=== PATIENT | male | born 1960 | race Native Hawaiian/Other Pacific Islander ===

== ENCOUNTER 2016-09-02 10:04 | Inpatient (IN) | payer OTHER | END 2016-10-03 08:00 | disposition still patient (30) | LOC: PAVC 10:04 | PROVIDERS: ADMIT Family Medicine | DX: Z51.89 Encounter for other specified aftercare (principal) ==

== ENCOUNTER 2016-10-03 09:00 | Inpatient (IN) | payer OTHER | END 2016-11-03 12:32 | disposition still patient (30) | LOC: PAVC 09:00 | PROVIDERS: ADMIT Family Medicine | DX: Z51.89 Encounter for other specified aftercare (principal) ==

== ENCOUNTER 2016-11-03 12:43 | Inpatient (IN) | payer OTHER | END 2016-12-01 13:18 | disposition still patient (30) | LOC: PAVC 12:43 | PROVIDERS: ADMIT Family Medicine | DX: Z51.89 Encounter for other specified aftercare (principal) ==

== ENCOUNTER 2016-11-16 18:33 | Outpatient (CLI) | payer OTHER ==
[2016-11-16 19:24] LABS: PLATELET COUNT 246 K/uL (142-355)
[2016-11-16 19:40] LABS: POTASSIUM 4.1 mmol/L (3.6-5.2); SODIUM 136 mmol/L (136-145)
== END 2016-11-16 20:33 | disposition home or self-care (01) ==
LOC: LAB 18:33
PROVIDERS: Family Medicine
DX: E66.01 Morbid (severe) obesity due to excess calories (principal); D64.9 Anemia, unspecified
CPT/HCPCS: 80053; 82728; 83036; 83540; 83550; 84439; 84443; 84479; 84550; 85027

== ENCOUNTER 2016-12-01 13:28 | Inpatient (IN) | payer OTHER | END 2017-01-01 08:12 | disposition still patient (30) | LOC: PAVC 13:28 | PROVIDERS: ADMIT Family Medicine | DX: Z51.89 Encounter for other specified aftercare (principal) ==

== ENCOUNTER 2017-01-01 08:29 | Inpatient (IN) | payer OTHER | END 2017-01-31 10:55 | disposition still patient (30) | LOC: PAVC 08:29 | PROVIDERS: ADMIT Family Medicine | DX: Z51.89 Encounter for other specified aftercare (principal) ==

== ENCOUNTER 2017-01-17 01:11 | Outpatient (CLI) | payer OTHER | END 2017-01-17 19:21 | disposition home or self-care (01) | LOC: LAB 01:11 | DX: E16.1 Other hypoglycemia (principal) | CPT/HCPCS: 81000 ==

== ENCOUNTER 2017-01-30 13:02 | Outpatient (CLI) | payer OTHER | END 2017-01-30 19:48 | disposition home or self-care (01) | LOC: LAB 13:02 | DX: Z16.24 Resistance to multiple antibiotics (principal) | CPT/HCPCS: 87081 ==

== ENCOUNTER 2017-01-31 11:13 | Inpatient (IN) | payer OTHER | END 2017-03-03 10:44 | disposition still patient (30) | LOC: PAVC 11:13 | PROVIDERS: ADMIT Family Medicine | DX: Z51.89 Encounter for other specified aftercare (principal) ==

== ENCOUNTER 2017-03-03 10:51 | Inpatient (IN) | payer OTHER | END 2017-04-02 16:07 | disposition still patient (30) | LOC: PAVC 10:51 | PROVIDERS: ADMIT Family Medicine | DX: Z51.89 Encounter for other specified aftercare (principal) ==

== ENCOUNTER 2017-03-08 07:03 | Outpatient (CLI) | payer OTHER ==
[2017-03-08 08:47] LABS: POTASSIUM 4.9 mmol/L (3.6-5.2); SODIUM 137 mmol/L (136-145)
[2017-03-08 14:33] LABS: PLATELET COUNT 234 K/uL (142-355)
== END 2017-03-08 19:08 | disposition home or self-care (01) ==
LOC: LAB 07:03
PROVIDERS: Family Medicine
DX: D64.89 Other specified anemias (principal); E78.4 Other hyperlipidemia; I10 Essential (primary) hypertension
CPT/HCPCS: 80053; 80061; 83735; 85027

== ENCOUNTER 2017-04-02 16:23 | Inpatient (IN) | payer OTHER | END 2017-05-03 12:56 | disposition still patient (30) | LOC: PAVC 16:23 | PROVIDERS: ADMIT Family Medicine | DX: Z51.89 Encounter for other specified aftercare (principal) ==

== ENCOUNTER 2017-05-03 13:55 | Inpatient (IN) | payer OTHER | END 2017-06-03 09:41 | disposition still patient (30) | LOC: PAVC 13:55 | PROVIDERS: ADMIT Family Medicine | DX: Z51.89 Encounter for other specified aftercare (principal) ==

== ENCOUNTER 2017-06-03 10:13 | Inpatient (IN) | payer OTHER | END 2017-07-03 09:35 | disposition still patient (30) | LOC: PAVC 10:13 | PROVIDERS: ADMIT Family Medicine | DX: Z51.89 Encounter for other specified aftercare (principal) ==

== ENCOUNTER 2017-07-03 09:49 | Inpatient (IN) | payer OTHER | END 2017-08-03 14:18 | disposition still patient (30) | LOC: PAVC 09:49 | PROVIDERS: ADMIT Family Medicine ==

== ENCOUNTER 2017-08-03 14:28 | Inpatient (IN) | payer OTHER | END 2017-09-02 10:28 | disposition still patient (30) | LOC: PAVC 14:28 | PROVIDERS: ADMIT Family Medicine ==

== ENCOUNTER 2017-09-02 10:37 | Inpatient (IN) | payer OTHER | END 2017-10-03 10:55 | disposition still patient (30) | LOC: PAVC 10:37 | PROVIDERS: ADMIT Family Medicine ==

== ENCOUNTER 2017-09-06 05:37 | Outpatient (CLI) | payer OTHER ==
[2017-09-06 06:47] LABS: PLATELET COUNT 172 K/uL (142-355)
[2017-09-06 07:11] LABS: POTASSIUM 4.7 mmol/L (3.6-5.2); SODIUM 136 mmol/L (136-145)
== END 2017-09-06 06:40 | disposition home or self-care (01) ==
LOC: LAB 05:37
PROVIDERS: Family Medicine
DX: R79.89 Other specified abnormal findings of blood chemistry (principal); E61.2 Magnesium deficiency; Z13.220 Encounter for screening for lipoid disorders
CPT/HCPCS: 80053; 80061; 83735; 85027

== ENCOUNTER 2017-09-07 12:34 | Outpatient (CLI) | payer OTHER | END 2017-09-07 21:17 | disposition home or self-care (01) | LOC: LAB 12:34 | DX: D64.89 Other specified anemias (principal); D50.8 Other iron deficiency anemias | CPT/HCPCS: 82728; 83540; 83550 ==

== ENCOUNTER 2017-10-03 11:35 | Inpatient (IN) | payer OTHER | END 2017-11-03 11:11 | disposition still patient (30) | LOC: PAVC 11:35 | PROVIDERS: ADMIT Family Medicine ==

== ENCOUNTER 2017-11-03 12:18 | Inpatient (IN) | payer OTHER | END 2017-12-01 10:36 | disposition still patient (30) | LOC: PAVC 12:18 | PROVIDERS: ADMIT Family Medicine ==

== ENCOUNTER 2017-12-01 10:45 | Inpatient (IN) | payer OTHER | END 2018-01-01 08:00 | disposition still patient (30) | LOC: PAVC 10:45 | PROVIDERS: ADMIT Family Medicine ==

== ENCOUNTER 2018-01-01 09:00 | Inpatient (IN) | payer OTHER | END 2018-01-31 10:26 | disposition still patient (30) | LOC: PAVC 09:00 | PROVIDERS: ADMIT Family Medicine ==

== ENCOUNTER 2018-01-27 16:38 | Outpatient (CLI) | payer OTHER ==
[2018-01-27 16:56] LABS: PLATELET COUNT 221 K/uL (142-355)
[2018-01-27 17:22] LABS: POTASSIUM 4.7 mmol/L (3.6-5.2)
== END 2018-01-27 19:19 | disposition home or self-care (01) ==
LOC: LAB 16:38
PROVIDERS: Family Medicine
DX: R04.0 Epistaxis (principal)
CPT/HCPCS: 36415; 80053; 81000; 82607; 82746; 85027

== ENCOUNTER 2018-01-31 10:40 | Inpatient (IN) | payer OTHER ==
[2018-03-03 04:10] LABS: PLATELET COUNT 226 K/uL (142-355)
[2018-03-03 04:27] LABS: POTASSIUM 4.7 mmol/L (3.6-5.2)
== END 2018-03-03 10:22 | disposition still patient (30) ==
LOC: PAVC 10:40
PROVIDERS: ADMIT Family Medicine
CPT/HCPCS: 80053; 80061; 83735; 84436; 84443; 85027

== ENCOUNTER 2018-03-03 03:40 | Outpatient (CLI) | payer OTHER | END 2018-03-03 19:18 | disposition home or self-care (01) | LOC: LAB 03:40 | DX: I10 Essential (primary) hypertension (principal); R53.83 Other fatigue; E66.01 Morbid (severe) obesity due to excess calories; E78.4 Other hyperlipidemia; I50.9 Heart failure, unspecified ==

== ENCOUNTER 2018-03-03 10:38 | Inpatient (IN) | payer OTHER | END 2018-04-02 15:04 | disposition still patient (30) | LOC: PAVC 10:38 | PROVIDERS: ADMIT Family Medicine ==

== ENCOUNTER 2018-04-02 15:22 | Inpatient (IN) | payer OTHER | END 2018-05-03 08:00 | disposition still patient (30) | LOC: PAVC 15:22 | PROVIDERS: ADMIT Family Medicine ==

== ENCOUNTER 2018-04-25 07:27 | Outpatient (CLI) | payer OTHER | END 2018-04-25 19:23 | disposition home or self-care (01) | LOC: RAD 07:27 | DX: M25.512 Pain in left shoulder (principal) ==

== ENCOUNTER 2018-05-03 09:00 | Inpatient (IN) | payer OTHER | END 2018-06-03 11:10 | disposition still patient (30) | LOC: PAVC 09:00 | PROVIDERS: ADMIT Family Medicine ==

== ENCOUNTER 2018-06-03 11:25 | Inpatient (IN) | payer OTHER | END 2018-07-03 14:31 | disposition still patient (30) | LOC: PAVC 11:25 | PROVIDERS: ADMIT Family Medicine ==

== ENCOUNTER 2018-07-03 15:11 | Inpatient (IN) | payer OTHER | END 2018-08-03 10:30 | disposition still patient (30) | LOC: PAVC 15:11 | PROVIDERS: ADMIT Family Medicine ==

== ENCOUNTER 2018-08-03 11:03 | Inpatient (IN) | payer OTHER | END 2018-09-02 07:19 | disposition still patient (30) | LOC: PAVC 11:03 | PROVIDERS: ADMIT Family Medicine ==

== ENCOUNTER 2018-08-10 06:34 | Outpatient (CLI) | payer OTHER | END 2018-08-10 20:08 | disposition home or self-care (01) | LOC: LAB 06:34 | DX: E55.9 Vitamin D deficiency, unspecified (principal) | CPT/HCPCS: 36415; 82306 ==

== ENCOUNTER 2018-08-23 10:45 | Outpatient (CLI) | payer OTHER | END 2018-08-23 19:36 | disposition home or self-care (01) | LOC: RAD 10:45 | DX: M25.562 Pain in left knee (principal) ==

== ENCOUNTER 2018-09-02 07:26 | Inpatient (IN) | payer OTHER | END 2018-10-03 09:34 | disposition still patient (30) | LOC: PAVC 07:26 | PROVIDERS: ADMIT Family Medicine ==

== ENCOUNTER 2018-09-06 05:36 | Outpatient (CLI) | payer OTHER ==
[2018-09-06 06:37] LABS: POTASSIUM 5.2 mmol/L (3.6-5.2)
[2018-09-06 06:38] LABS: PLATELET COUNT 226 K/uL (142-355)
== END 2018-09-06 21:11 | disposition home or self-care (01) ==
LOC: LAB 05:36
PROVIDERS: Family Medicine
DX: I50.9 Heart failure, unspecified (principal); E61.2 Magnesium deficiency; E78.5 Hyperlipidemia, unspecified
CPT/HCPCS: 80053; 80061; 83735; 85027

== ENCOUNTER 2018-10-03 09:44 | Inpatient (IN) | payer OTHER ==
[2018-11-02] MEDS ORDERED: CALCIUM CARBON600 M2 PO (03:11)
[2018-11-02] MEDS ORDERED: DOCU100C10 PO (03:12)
[2018-11-02] MEDS ORDERED: ELIQUIS5 MG PO (03:13)
[2018-11-02] MEDS ORDERED: IRON325 MG PO (03:14)
[2018-11-02] MEDS ORDERED: FURO40TA93 PO (03:14)
[2018-11-02] MEDS ORDERED: LIPITOR80 MG PO (03:15)
[2018-11-02] MEDS ORDERED: LYRICA75 MG PO (03:16)
[2018-11-02] MEDS ORDERED: METOPROLOL25 M1 PO (03:17)
[2018-11-02] MEDS ORDERED: MAG OXIDE400 MG PO (03:17)
[2018-11-02] MEDS ORDERED: ONDANSETRON4 M2 PO (03:18)
[2018-11-02] MEDS ORDERED: PEPCID20 MG PO (03:18)
[2018-11-02] MEDS ORDERED: OMEP20CA PO (03:20)
[2018-11-02] MEDS ORDERED: K-TAB20 MEQ PO (03:20)
[2018-11-02] MEDS ORDERED: ASCO500T18 PO (03:21)
[2018-11-02] MEDS ORDERED: DIAZ5TAB20 PO (03:21)
[2018-11-02] MEDS ORDERED: VITAMIN D35000 UNI6 PO (03:22)
[2018-11-02] MEDS ORDERED: CLARITIN10 M1 PO (03:23)
[2018-11-02] MEDS ORDERED: MELATONIN10 M2 PO (03:23)
[2018-11-02] MEDS ORDERED: TYLENOL325 M1 PO (03:24)
[2018-11-02] MEDS ORDERED: MOBIC7.5 M1 PO (03:24)
[2018-11-02] MEDS ORDERED: HYDR10TA47 PO (03:25)
== END 2018-11-03 09:35 | disposition still patient (30) ==
LOC: PAVC 09:44
PROVIDERS: ADMIT Family Medicine

== ENCOUNTER 2018-10-31 22:05 | Outpatient (CLI) | payer OTHER | END 2018-10-31 23:00 | LOC: LAB 22:05 | DX: J11.1 Influenza due to unidentified influenza virus with other respiratory manifestations (principal) ==

== ENCOUNTER 2018-11-01 15:52 | Outpatient (CLI) | payer OTHER ==
[2018-11-02] MEDS ORDERED: CALCIUM CARBON600 M2 PO (03:11)
[2018-11-02] MEDS ORDERED: DOCU100C10 PO (03:12)
[2018-11-02] MEDS ORDERED: ELIQUIS5 MG PO (03:13)
[2018-11-02] MEDS ORDERED: FURO40TA93 PO (03:14)
[2018-11-02] MEDS ORDERED: IRON325 MG PO (03:14)
[2018-11-02] MEDS ORDERED: LIPITOR80 MG PO (03:15)
[2018-11-02] MEDS ORDERED: LYRICA75 MG PO (03:16)
[2018-11-02] MEDS ORDERED: METOPROLOL25 M1 PO (03:17)
[2018-11-02] MEDS ORDERED: MAG OXIDE400 MG PO (03:17)
[2018-11-02] MEDS ORDERED: ONDANSETRON4 M2 PO (03:18)
[2018-11-02] MEDS ORDERED: PEPCID20 MG PO (03:18)
[2018-11-02] MEDS ORDERED: K-TAB20 MEQ PO (03:20)
[2018-11-02] MEDS ORDERED: OMEP20CA PO (03:20)
[2018-11-02] MEDS ORDERED: ASCO500T18 PO (03:21)
[2018-11-02] MEDS ORDERED: DIAZ5TAB20 PO (03:21)
[2018-11-02] MEDS ORDERED: VITAMIN D35000 UNI6 PO (03:22)
[2018-11-02] MEDS ORDERED: MELATONIN10 M2 PO (03:23)
[2018-11-02] MEDS ORDERED: CLARITIN10 M1 PO (03:23)
[2018-11-02] MEDS ORDERED: MOBIC7.5 M1 PO (03:24)
[2018-11-02] MEDS ORDERED: TYLENOL325 M1 PO (03:24)
[2018-11-02] MEDS ORDERED: HYDR10TA47 PO (03:25)
== END 2018-11-01 23:07 | disposition home or self-care (01) ==
LOC: RAD 15:52
DX: R05 Cough (principal)

== ENCOUNTER 2018-11-01 16:54 | Inpatient (IN) | payer OTHER ==
[~2018-11-01] VITALS: Ht 175.3 cm; Wt 198.2 kg
[2018-11-01 20:00] VITALS: BP 141/85; TEMP 101.7
[2018-11-01 21:17] VITALS: BP 141/85; TEMP 101.7; Ht 175.3 cm; Wt 198.2 kg
[2018-11-01 21:21] LABS: PLATELET COUNT 170 K/uL (142-355)
[2018-11-01 21:32] LABS: POTASSIUM 4.3 mmol/L (3.6-5.2)
[2018-11-02] VITALS: BP 126/73; TEMP 101.1
[2018-11-02] MEDS ORDERED: CALCIUM CARBON600 M2 PO (03:11)
[2018-11-02] MEDS ORDERED: DOCU100C10 PO (03:12)
[2018-11-02] MEDS ORDERED: ELIQUIS5 MG PO (03:13)
[2018-11-02] MEDS ORDERED: FURO40TA93 PO (03:14)
[2018-11-02] MEDS ORDERED: IRON325 MG PO (03:14)
[2018-11-02] MEDS ORDERED: LIPITOR80 MG PO (03:15)
[2018-11-02] MEDS ORDERED: LYRICA75 MG PO (03:16)
[2018-11-02] MEDS ORDERED: METOPROLOL25 M1 PO (03:17)
[2018-11-02] MEDS ORDERED: MAG OXIDE400 MG PO (03:17)
[2018-11-02] MEDS ORDERED: PEPCID20 MG PO (03:18)
[2018-11-02] MEDS ORDERED: ONDANSETRON4 M2 PO (03:18)
[2018-11-02] MEDS ORDERED: K-TAB20 MEQ PO (03:20)
[2018-11-02] MEDS ORDERED: OMEP20CA PO (03:20)
[2018-11-02] MEDS ORDERED: ASCO500T18 PO (03:21)
[2018-11-02] MEDS ORDERED: DIAZ5TAB20 PO (03:21)
[2018-11-02] MEDS ORDERED: VITAMIN D35000 UNI6 PO (03:22)
[2018-11-02] MEDS ORDERED: MELATONIN10 M2 PO (03:23)
[2018-11-02] MEDS ORDERED: CLARITIN10 M1 PO (03:23)
[2018-11-02] MEDS ORDERED: MOBIC7.5 M1 PO (03:24)
[2018-11-02] MEDS ORDERED: TYLENOL325 M1 PO (03:24)
[2018-11-02] MEDS ORDERED: HYDR10TA47 PO (03:25)
[2018-11-02 04:00] VITALS: BP 113/73; TEMP 98.9
[2018-11-02 08:04] VITALS: BP 133/79; TEMP 98.8
[2018-11-02 12:08] VITALS: BP 98/65; TEMP 98.6
[2018-11-02 16:19] VITALS: BP 105/70; TEMP 98.7
[2018-11-02 20:00] VITALS: BP 126/67; TEMP 98.8
[2018-11-03] VITALS: BP 104/70; TEMP 98.4
[2018-11-03 04:00] VITALS: BP 101/58; TEMP 98.3
[2018-11-03 08:18] VITALS: BP 124/75; TEMP 98.4
[2018-11-03 12:10] VITALS: BP 96/53; TEMP 98.4
[2018-11-03 16:00] VITALS: BP 116/82; TEMP 98.5
[2018-11-03 20:26] VITALS: BP 125/64; TEMP 98.8
[2018-11-04] VITALS: BP 133/65; TEMP 98.7
[2018-11-04 04:00] VITALS: BP 109/76; TEMP 98.2
[2018-11-04 08:00] VITALS: BP 97/76; TEMP 97.1
[2018-11-04 12:00] VITALS: BP 129/75; TEMP 97.6
[2018-11-04 13:50] LABS: PLATELET COUNT 162 K/uL (142-355)
[2018-11-04 14:04] LABS: POTASSIUM 4.4 mmol/L (3.6-5.2)
[2018-11-04 16:00] VITALS: BP 114/70; TEMP 98.3
[2018-11-04 20:00] VITALS: BP 140/88; TEMP 98.6
[2018-11-05] VITALS: BP 101/69; TEMP 98.8
[2018-11-05 04:27] VITALS: BP 140/76; TEMP 98.7
[2018-11-05 08:00] VITALS: BP 131/78; TEMP 98.1
[2018-11-05 12:00] VITALS: BP 136/77; TEMP 97.9
[2018-11-05 16:09] VITALS: BP 116/83; TEMP 98.1
[2018-11-05 20:00] VITALS: BP 108/78; TEMP 97.6
[2018-11-06] VITALS: BP 128/77; TEMP 97.4
[2018-11-06 04:00] VITALS: BP 96/42; TEMP 98
[2018-11-06 06:29] LABS: POTASSIUM 4.7 mmol/L (3.6-5.2)
[2018-11-06 07:55] LABS: PLATELET COUNT 172 K/uL (142-355)
[2018-11-06 08:00] VITALS: BP 126/77; TEMP 98.1
[2018-11-06 12:00] VITALS: BP 112/77; TEMP 98.1
== END 2018-11-06 12:17 | DRG 202 ==
LOC: MED/SURG 16:54
PROVIDERS: Family Medicine; ADMIT Family Medicine
DX: J45.901 Unspecified asthma with (acute) exacerbation (principal); L03.314 Cellulitis of groin; N39.0 Urinary tract infection, site not specified; Z68.44 Body mass index [BMI] 60.0-69.9, adult; I48.91 Unspecified atrial fibrillation; I25.10 Atherosclerotic heart disease of native coronary artery without angina pectoris; E78.49 Other hyperlipidemia; I25.2 Old myocardial infarction; E86.0 Dehydration; Z79.01 Long term (current) use of anticoagulants; E66.01 Morbid (severe) obesity due to excess calories; G47.09 Other insomnia; I50.9 Heart failure, unspecified
CPT/HCPCS: 36415; 80048; 80053; 81000; 85027; 87088; 93005; 94640; 94664; 94760; 96365; 96366; 96367; J0696; J1956; J3490

== ENCOUNTER 2018-11-03 09:45 | Inpatient (IN) | payer OTHER ==
[~2018-11-03 09:45] MED LIST: ASCO500T18 PO; CALCIUM CARBON600 M2 PO; CLARITIN10 M1 PO; DIAZ5TAB20 PO; DOCU100C10 PO; ELIQUIS5 MG PO; FURO40TA93 PO; HYDR10TA47 PO; IRON325 MG PO; K-TAB20 MEQ PO; LIPITOR80 MG PO; LYRICA75 MG PO; MAG OXIDE400 MG PO; MELATONIN10 M2 PO; METOPROLOL25 M1 PO; MOBIC7.5 M1 PO; OMEP20CA PO; ONDANSETRON4 M2 PO; PEPCID20 MG PO; TYLENOL325 M1 PO; VITAMIN D35000 UNI6 PO
== END 2018-12-01 12:10 | disposition still patient (30) ==
LOC: PAVC 09:45
PROVIDERS: ADMIT Family Medicine

== ENCOUNTER 2018-12-01 12:16 | Inpatient (IN) | payer OTHER | END 2019-01-01 12:28 | disposition still patient (30) | LOC: PAVC 12:16 | PROVIDERS: ADMIT Family Medicine ==

== ENCOUNTER 2018-12-26 12:58 | Outpatient (CLI) | payer OTHER | END 2018-12-26 21:10 | disposition home or self-care (01) | LOC: RESP 12:58 | DX: R00.0 Tachycardia, unspecified (principal); R06.02 Shortness of breath | CPT/HCPCS: 93306 ==

== ENCOUNTER 2019-01-01 12:36 | Inpatient (IN) | payer OTHER | END 2019-01-31 13:41 | disposition still patient (30) | LOC: PAVC 12:36 | PROVIDERS: ADMIT Family Medicine ==

== ENCOUNTER 2019-01-10 18:44 | Emergency (ER) | payer OTHER | END 2019-01-10 19:10 | disposition home or self-care (01) | LOC: ED 18:44 | DX: R00.2 Palpitations (principal); R53.1 Weakness | CPT/HCPCS: 99281 ==

== ENCOUNTER 2019-01-31 13:52 | Inpatient (IN) | payer OTHER | END 2019-03-03 09:38 | disposition still patient (30) | LOC: PAVC 13:52 | PROVIDERS: ADMIT Family Medicine | DX: Z51.89 Encounter for other specified aftercare (principal) ==

== ENCOUNTER 2019-02-05 02:30 | Outpatient (CLI) | payer OTHER | END 2019-02-05 20:13 | disposition home or self-care (01) | LOC: LAB 02:30 | DX: D51.8 Other vitamin B12 deficiency anemias (principal) | CPT/HCPCS: 36415; 82306 ==

== ENCOUNTER 2019-02-13 17:43 | Outpatient (CLI) | payer OTHER ==
[2019-02-13 21:57] LABS: PLATELET COUNT 247 K/uL (142-355)
[2019-02-13 22:13] LABS: POTASSIUM 4.7 mmol/L (3.6-5.2)
== END 2019-02-13 22:35 | disposition home or self-care (01) ==
LOC: LAB 17:43 → RAD 17:43
PROVIDERS: Family Medicine
DX: R05 Cough (principal); R06.2 Wheezing; J81.1 Chronic pulmonary edema
CPT/HCPCS: 36415; 80053; 83880; 85027

== ENCOUNTER 2019-02-14 15:07 | Outpatient (CLI) | payer OTHER | END 2019-02-14 19:16 | disposition home or self-care (01) | LOC: RESP 15:07 | DX: I48.0 Paroxysmal atrial fibrillation (principal); R00.2 Palpitations | CPT/HCPCS: 93225 ==

== ENCOUNTER 2019-03-03 09:55 | Inpatient (IN) | payer OTHER | END 2019-04-02 11:34 | disposition still patient (30) | LOC: PAVC 09:55 | PROVIDERS: ADMIT Internal Medicine ==

== ENCOUNTER 2019-03-07 03:50 | Outpatient (CLI) | payer OTHER ==
[2019-03-07 04:50] LABS: PLATELET COUNT 191 K/uL (142-355)
[2019-03-07 05:12] LABS: POTASSIUM 4.5 mmol/L (3.6-5.2)
== END 2019-03-07 23:21 | disposition home or self-care (01) ==
LOC: LAB 03:50
PROVIDERS: Family Medicine
DX: R79.89 Other specified abnormal findings of blood chemistry (principal); E61.2 Magnesium deficiency; E78.49 Other hyperlipidemia
CPT/HCPCS: 36415; 80053; 80061; 83735; 85027

== ENCOUNTER 2019-03-07 18:56 | Outpatient (CLI) | payer OTHER | END 2019-03-07 23:29 | disposition home or self-care (01) | LOC: LAB 18:56 | DX: D64.89 Other specified anemias (principal); E78.49 Other hyperlipidemia; D64.9 Anemia, unspecified | CPT/HCPCS: 82728; 83540; 83550 ==

== ENCOUNTER 2019-04-02 11:58 | Inpatient (IN) | payer OTHER | END 2019-05-03 11:52 | disposition still patient (30) | LOC: PAVC 11:58 | PROVIDERS: ADMIT Family Medicine ==

== ENCOUNTER 2019-05-03 12:57 | Inpatient (IN) | payer OTHER | END 2019-06-03 17:15 | disposition still patient (30) | LOC: PAVC 12:57 | PROVIDERS: ADMIT Family Medicine ==

== ENCOUNTER 2019-05-11 07:48 | Outpatient (CLI) | payer OTHER | END 2019-05-11 23:40 | disposition home or self-care (01) | LOC: LAB 07:48 | DX: Z12.5 Encounter for screening for malignant neoplasm of prostate (principal) | CPT/HCPCS: 84153 ==

== ENCOUNTER 2019-06-03 17:31 | Inpatient (IN) | payer OTHER | END 2019-07-03 12:55 | disposition still patient (30) | LOC: PAVC 17:31 | PROVIDERS: ADMIT Internal Medicine ==

== ENCOUNTER 2019-07-03 13:20 | Inpatient (IN) | payer OTHER | END 2019-08-03 14:04 | disposition still patient (30) | LOC: PAVC 13:20 | PROVIDERS: ADMIT Internal Medicine ==

== ENCOUNTER 2019-08-03 14:20 | Inpatient (IN) | payer OTHER | END 2019-09-02 08:00 | disposition still patient (30) | LOC: PAVC 14:20 | PROVIDERS: ADMIT Internal Medicine ==

== ENCOUNTER 2019-09-02 11:00 | Inpatient (IN) | payer OTHER | END 2019-10-03 09:27 | disposition still patient (30) | LOC: PAVC 11:00 | PROVIDERS: ADMIT Internal Medicine ==

== ENCOUNTER 2019-09-03 05:24 | Outpatient (CLI) | payer OTHER ==
[2019-09-03 06:41] LABS: PLATELET COUNT 201 K/uL (142-355)
[2019-09-03 07:18] LABS: POTASSIUM 4.3 mmol/L (3.6-5.2)
== END 2019-09-03 20:53 | disposition home or self-care (01) ==
LOC: LAB 05:24
PROVIDERS: Internal Medicine
DX: I10 Essential (primary) hypertension (principal); E87.8 Other disorders of electrolyte and fluid balance, not elsewhere classified
CPT/HCPCS: 80053; 80061; 83735; 85027

== ENCOUNTER 2019-10-03 09:45 | Inpatient (IN) | payer OTHER | END 2019-11-03 10:43 | disposition still patient (30) | LOC: PAVC 09:45 | PROVIDERS: ADMIT Internal Medicine ==

== ENCOUNTER 2019-11-03 11:03 | Inpatient (IN) | payer OTHER | END 2019-12-02 14:09 | disposition still patient (30) | LOC: PAVC 11:03 | PROVIDERS: ADMIT Internal Medicine ==

== ENCOUNTER 2019-12-02 14:26 | Inpatient (IN) | payer OTHER | END 2020-01-02 11:34 | disposition still patient (30) | LOC: PAVC 14:26 | PROVIDERS: ADMIT Internal Medicine ==

== ENCOUNTER 2020-01-02 11:59 | Inpatient (IN) | payer OTHER | END 2020-02-01 11:20 | disposition still patient (30) | LOC: PAVC 11:59 | PROVIDERS: ADMIT Internal Medicine ==

== ENCOUNTER 2020-02-01 11:42 | Inpatient (IN) | payer OTHER | END 2020-03-03 11:19 | disposition still patient (30) | LOC: PAVC 11:42 | PROVIDERS: ADMIT Internal Medicine | CPT/HCPCS: 87635; U0002 ==

== ENCOUNTER 2020-02-13 14:25 | Outpatient (CLI) | payer OTHER ==
[2020-02-13 14:32] LABS: PLATELET COUNT 267 K/uL (142-355)
[2020-02-13 14:43] LABS: POTASSIUM 4.9 mmol/L (3.6-5.2)
== END 2020-02-13 22:24 | disposition home or self-care (01) ==
LOC: LAB 14:25
PROVIDERS: Nurse Practitioner
DX: U07.1 COVID-19 (principal); I48.91 Unspecified atrial fibrillation
CPT/HCPCS: 80053; 85027; 85610

== ENCOUNTER 2020-02-21 06:43 | Outpatient (CLI) | payer OTHER ==
[2020-02-21 08:03] LABS: PLATELET COUNT 221 K/uL (142-355)
== END 2020-02-21 22:52 | disposition home or self-care (01) ==
LOC: LAB 06:43
PROVIDERS: Internal Medicine
DX: U07.1 COVID-19 (principal); Z79.899 Other long term (current) drug therapy
CPT/HCPCS: 85027

== ENCOUNTER 2020-03-03 11:29 | Inpatient (IN) | payer OTHER | END 2020-04-02 11:54 | disposition still patient (30) | LOC: PAVC 11:29 | PROVIDERS: ADMIT Internal Medicine ==

== ENCOUNTER 2020-03-04 01:56 | Outpatient (CLI) | payer OTHER ==
[2020-03-04 06:04] LABS: PLATELET COUNT 286 K/uL (142-355)
[2020-03-04 06:10] LABS: POTASSIUM 4.2 mmol/L (3.6-5.2)
== END 2020-03-04 19:02 | disposition home or self-care (01) ==
LOC: LAB 01:56
PROVIDERS: Internal Medicine
DX: I25.89 Other forms of chronic ischemic heart disease (principal); E78.49 Other hyperlipidemia; I10 Essential (primary) hypertension; I48.91 Unspecified atrial fibrillation
CPT/HCPCS: 80053; 80061; 82306; 83735; 85027

== ENCOUNTER 2020-04-02 11:59 | Inpatient (IN) | payer OTHER | END 2020-05-03 10:11 | disposition still patient (30) | LOC: PAVC 11:59 | PROVIDERS: ADMIT Internal Medicine ==

== ENCOUNTER 2020-05-03 10:18 | Inpatient (IN) | payer OTHER | END 2020-06-03 13:59 | disposition still patient (30) | LOC: PAVC 10:18 | PROVIDERS: ADMIT Internal Medicine ==

== ENCOUNTER 2020-06-03 14:10 | Inpatient (IN) | payer OTHER | END 2020-07-03 14:07 | disposition still patient (30) | LOC: PAVC 14:10 | PROVIDERS: ADMIT Internal Medicine ==

== ENCOUNTER 2020-07-03 14:17 | Inpatient (IN) | payer OTHER | END 2020-08-03 08:00 | disposition still patient (30) | LOC: PAVC 14:17 | PROVIDERS: ADMIT Internal Medicine ==

== ENCOUNTER 2020-07-09 12:19 | Outpatient (CLI) | payer OTHER ==
[2020-07-09 12:58] LABS: PLATELET COUNT 199 K/uL (142-355)
[2020-07-09 13:03] LABS: POTASSIUM 4.6 mmol/L (3.6-5.2)
== END 2020-07-09 23:00 | disposition home or self-care (01) ==
LOC: LAB 12:19
PROVIDERS: Nurse Practitioner
DX: I82.409 Acute embolism and thrombosis of unspecified deep veins of unspecified lower extremity (principal); M79.662 Pain in left lower leg; M62.81 Muscle weakness (generalized)
CPT/HCPCS: 80053; 85027

== ENCOUNTER 2020-07-21 17:06 | Outpatient (CLI) | payer OTHER | END 2020-07-21 22:37 | disposition home or self-care (01) | LOC: RAD 17:06 | DX: L53.8 Other specified erythematous conditions (principal); M89.8X8 Other specified disorders of bone, other site; M25.532 Pain in left wrist ==

== ENCOUNTER 2020-08-03 09:00 | Inpatient (IN) | payer OTHER | END 2020-09-02 12:23 | disposition still patient (30) | LOC: PAVC 09:00 | PROVIDERS: ADMIT Internal Medicine; ATTEND Internal Medicine ==

== ENCOUNTER 2020-09-02 08:10 | Outpatient (CLI) | payer OTHER ==
[2020-09-02 08:25] LABS: PLATELET COUNT 205 K/uL (142-355)
[2020-09-02 08:46] LABS: POTASSIUM 4.5 mmol/L (3.6-5.2)
== END 2020-09-02 22:22 | disposition home or self-care (01) ==
LOC: LAB 08:10
PROVIDERS: ATTEND Internal Medicine
DX: E66.01 Morbid (severe) obesity due to excess calories (principal); I50.9 Heart failure, unspecified; E55.9 Vitamin D deficiency, unspecified; I25.89 Other forms of chronic ischemic heart disease; E78.49 Other hyperlipidemia; I48.91 Unspecified atrial fibrillation; I11.0 Hypertensive heart disease with heart failure
CPT/HCPCS: 80053; 80061; 82306; 83735; 85027

== ENCOUNTER 2020-09-02 12:31 | Inpatient (IN) | payer OTHER | END 2020-10-03 09:46 | disposition still patient (30) | LOC: PAVC 12:31 | PROVIDERS: ADMIT Internal Medicine; ATTEND Internal Medicine ==

== ENCOUNTER 2020-10-03 09:53 | Inpatient (IN) | payer OTHER | END 2020-11-03 15:29 | disposition still patient (30) | LOC: PAVC 09:53 | PROVIDERS: ADMIT Internal Medicine; ATTEND Internal Medicine ==

== ENCOUNTER 2020-11-03 15:55 | Inpatient (IN) | payer OTHER | END 2020-12-01 10:57 | disposition still patient (30) | LOC: PAVC 15:55 | PROVIDERS: ADMIT Internal Medicine; ATTEND Internal Medicine ==

== ENCOUNTER 2020-12-01 11:24 | Inpatient (IN) | payer OTHER | END 2021-01-01 11:41 | disposition still patient (30) | LOC: PAVC 11:24 | PROVIDERS: ADMIT Internal Medicine; ATTEND Internal Medicine ==

== ENCOUNTER 2020-12-14 09:38 | Outpatient (CLI) | payer OTHER | END 2020-12-14 18:17 | disposition home or self-care (01) | LOC: RAD 09:38 | PROVIDERS: ATTEND Internal Medicine | DX: M25.512 Pain in left shoulder (principal) ==

== ENCOUNTER 2020-12-17 11:14 | Outpatient (CLI) | payer OTHER | END 2020-12-17 22:13 | disposition home or self-care (01) | LOC: INF 11:14 | PROVIDERS: ATTEND Internal Medicine | DX: Z23 Encounter for immunization (principal) | CPT/HCPCS: 96372 ==

== ENCOUNTER 2021-01-01 11:48 | Inpatient (IN) | payer OTHER | END 2021-01-31 11:24 | disposition still patient (30) | LOC: PAVC 11:48 | PROVIDERS: ADMIT Internal Medicine; ATTEND Internal Medicine ==

== ENCOUNTER 2021-01-15 14:45 | Outpatient (CLI) | payer OTHER | END 2021-01-15 22:02 | disposition home or self-care (01) | LOC: INF 14:45 | PROVIDERS: ATTEND Internal Medicine | DX: Z23 Encounter for immunization (principal) | CPT/HCPCS: 96372 ==

== ENCOUNTER 2021-01-31 11:29 | Inpatient (IN) | payer OTHER | END 2021-03-03 15:43 | disposition still patient (30) | LOC: PAVC 11:29 | PROVIDERS: ADMIT Internal Medicine; ATTEND Internal Medicine ==

== ENCOUNTER 2021-03-03 08:26 | Outpatient (CLI) | payer OTHER ==
[2021-03-03 09:45] LABS: PLATELET COUNT 227 K/uL (142-355)
[2021-03-03 10:10] LABS: POTASSIUM 4.4 mmol/L (3.6-5.2)
== END 2021-03-03 22:06 | disposition home or self-care (01) ==
LOC: LAB 08:26
PROVIDERS: ATTEND Internal Medicine
DX: I25.9 Chronic ischemic heart disease, unspecified (principal); E78.49 Other hyperlipidemia; I10 Essential (primary) hypertension; I48.91 Unspecified atrial fibrillation
CPT/HCPCS: 80053; 80061; 82306; 83735; 85027

== ENCOUNTER 2021-03-03 16:57 | Inpatient (IN) | payer OTHER | END 2021-04-02 08:00 | disposition still patient (30) | LOC: PAVC 16:57 | PROVIDERS: ADMIT Internal Medicine; ATTEND Internal Medicine ==

== ENCOUNTER 2021-04-02 09:00 | Inpatient (IN) | payer OTHER | END 2021-05-03 08:00 | disposition still patient (30) | LOC: PAVC 09:00 | PROVIDERS: ADMIT Internal Medicine; ATTEND Internal Medicine ==

== ENCOUNTER 2021-05-01 14:51 | Outpatient (CLI) | payer OTHER | END 2021-05-01 22:39 | disposition home or self-care (01) | LOC: RESP 14:51 | PROVIDERS: ATTEND Internal Medicine | DX: I25.89 Other forms of chronic ischemic heart disease (principal); I48.91 Unspecified atrial fibrillation; I50.9 Heart failure, unspecified | CPT/HCPCS: 93005 ==

== ENCOUNTER 2021-05-01 15:13 | Emergency (ER) | payer OTHER ==
[~2021-05-01] VITALS: Ht 175.3 cm; Wt 198.2 kg
[2021-05-01 15:19] VITALS: TEMP 96.4
[2021-05-01 16:46] LABS: PLATELET COUNT 325 K/uL (142-355)
[2021-05-01 16:58] LABS: POTASSIUM 4.3 mmol/L (3.6-5.2); SODIUM 134 mmol/L (136-145)
[2021-05-01 18:30] VITALS: BP 104/68
== END 2021-05-01 18:30 ==
LOC: ED 15:13
PROVIDERS: Family Medicine
DX: I48.20 Chronic atrial fibrillation, unspecified (principal); F41.0 Panic disorder [episodic paroxysmal anxiety]; Z20.822 Contact with and (suspected) exposure to COVID-19
CPT/HCPCS: 80053; 82550; 84484; 85027; 87635; 93005; 99283; U0003

== ENCOUNTER 2021-05-03 09:00 | Inpatient (IN) | payer OTHER | END 2021-06-03 13:48 | disposition still patient (30) | LOC: PAVC 09:00 | PROVIDERS: ADMIT Internal Medicine; ATTEND Internal Medicine ==

== ENCOUNTER 2021-05-04 09:04 | Outpatient (CLI) | payer OTHER | END 2021-05-04 22:37 | disposition home or self-care (01) | LOC: LAB 09:04 | PROVIDERS: ATTEND Internal Medicine | DX: I25.89 Other forms of chronic ischemic heart disease (principal); R48.8 Other symbolic dysfunctions; Z79.899 Other long term (current) drug therapy | CPT/HCPCS: 84153; 84439; 84443; 84479 ==

== ENCOUNTER 2021-05-11 15:36 | Outpatient (CLI) | payer OTHER | END 2021-05-11 21:47 | disposition home or self-care (01) | LOC: RAD 15:36 | PROVIDERS: ATTEND Internal Medicine | DX: R91.8 Other nonspecific abnormal finding of lung field (principal) ==

== ENCOUNTER 2021-05-25 00:32 | Outpatient (CLI) | payer OTHER | END 2021-05-25 21:41 | disposition home or self-care (01) | LOC: LAB 00:32 | PROVIDERS: ATTEND Internal Medicine | DX: I25.9 Chronic ischemic heart disease, unspecified (principal); I50.89 Other heart failure | CPT/HCPCS: 80162 ==

== ENCOUNTER 2021-06-03 13:54 | Inpatient (IN) | payer OTHER | END 2021-07-03 09:37 | disposition still patient (30) | LOC: PAVC 13:54 | PROVIDERS: ADMIT Internal Medicine; ATTEND Internal Medicine ==

== ENCOUNTER 2021-09-02 08:04 | Outpatient (CLI) | payer OTHER ==
[2021-09-02 08:48] LABS: PLATELET COUNT 232 K/uL (142-355)
[2021-09-02 08:57] LABS: POTASSIUM 4.3 mmol/L (3.6-5.2)
== END 2021-09-02 20:11 | disposition home or self-care (01) ==
LOC: LAB 08:04
PROVIDERS: ATTEND Internal Medicine
DX: I25.89 Other forms of chronic ischemic heart disease (principal); E78.49 Other hyperlipidemia; I10 Essential (primary) hypertension; I48.91 Unspecified atrial fibrillation
CPT/HCPCS: 80053; 80061; 82306; 83735; 85027

== ENCOUNTER 2021-09-02 11:26 | Inpatient (IN) | payer OTHER | END 2021-10-03 09:07 | disposition still patient (30) | LOC: PAVC 11:26 | PROVIDERS: ADMIT Internal Medicine; ATTEND Internal Medicine ==

== ENCOUNTER 2021-10-03 09:16 | Inpatient (IN) | payer OTHER | END 2021-11-03 08:54 | disposition still patient (30) | LOC: PAVC 09:16 | PROVIDERS: ADMIT Internal Medicine; ATTEND Internal Medicine ==

== ENCOUNTER 2021-11-03 11:21 | Inpatient (IN) | payer OTHER | END 2021-12-01 09:06 | disposition still patient (30) | LOC: PAVC 11:21 | PROVIDERS: ADMIT Internal Medicine; ATTEND Internal Medicine ==

== ENCOUNTER 2021-11-22 07:46 | Outpatient (CLI) | payer OTHER | END 2021-11-22 19:20 | disposition home or self-care (01) | LOC: LAB 07:46 | PROVIDERS: ATTEND Internal Medicine | DX: I25.89 Other forms of chronic ischemic heart disease (principal); I10 Essential (primary) hypertension; Z79.899 Other long term (current) drug therapy | CPT/HCPCS: 80162 ==

== ENCOUNTER 2021-12-01 13:29 | Inpatient (IN) | payer OTHER | END 2022-01-01 14:09 | disposition still patient (30) | LOC: PAVC 13:29 | PROVIDERS: ADMIT Internal Medicine; ATTEND Internal Medicine ==

== ENCOUNTER 2022-01-01 14:45 | Inpatient (IN) | payer OTHER | END 2022-01-31 10:32 | disposition still patient (30) | LOC: PAVC 14:45 | PROVIDERS: ADMIT Internal Medicine; ATTEND Internal Medicine ==

== ENCOUNTER 2022-01-28 07:46 | Outpatient (CLI) | payer OTHER ==
[~2022-01-28] VITALS: Ht 172.7 cm; Wt 172.8 kg
== END 2022-01-28 21:55 | disposition home or self-care (01) ==
LOC: NM 07:46
PROVIDERS: ATTEND Internal Medicine
DX: I48.91 Unspecified atrial fibrillation (principal)
CPT/HCPCS: A9500; J2785

== ENCOUNTER 2022-01-31 01:48 | Inpatient (IN) | payer OTHER | END 2022-03-03 09:55 | disposition still patient (30) | LOC: PAVC 01:48 | PROVIDERS: ADMIT Internal Medicine; ATTEND Internal Medicine ==

== ENCOUNTER 2022-03-03 08:31 | Outpatient (CLI) | payer OTHER ==
[2022-03-03 08:50] LABS: PLATELET COUNT 278 K/uL (142-355)
[2022-03-03 08:58] LABS: POTASSIUM 4.8 mmol/L (3.6-5.2)
== END 2022-03-03 19:08 | disposition home or self-care (01) ==
LOC: LAB 08:31
PROVIDERS: ATTEND Internal Medicine
DX: I25.89 Other forms of chronic ischemic heart disease (principal); I10 Essential (primary) hypertension; I48.91 Unspecified atrial fibrillation
CPT/HCPCS: 80053; 80061; 82306; 83735; 85027

== ENCOUNTER 2022-03-03 15:15 | Inpatient (IN) | payer OTHER | END 2022-04-02 09:13 | disposition still patient (30) | LOC: PAVC 15:15 | PROVIDERS: ADMIT Internal Medicine; ATTEND Internal Medicine ==

== ENCOUNTER 2022-04-02 12:33 | Inpatient (IN) | payer OTHER | END 2022-05-03 09:07 | disposition still patient (30) | LOC: PAVC 12:33 | PROVIDERS: ADMIT Internal Medicine; ATTEND Internal Medicine ==

== ENCOUNTER 2022-05-03 09:39 | Inpatient (IN) | payer OTHER | END 2022-06-03 09:10 | disposition still patient (30) | LOC: PAVC 09:39 | PROVIDERS: ADMIT Internal Medicine; ATTEND Internal Medicine ==

== ENCOUNTER 2022-05-24 07:23 | Outpatient (CLI) | payer OTHER | END 2022-05-24 18:47 | disposition home or self-care (01) | LOC: LAB 07:23 | PROVIDERS: ATTEND Internal Medicine Endocrinology, Diabetes & Metabolism | DX: I25.9 Chronic ischemic heart disease, unspecified (principal); I48.91 Unspecified atrial fibrillation; I50.9 Heart failure, unspecified | CPT/HCPCS: 80162 ==

== ENCOUNTER 2022-06-03 14:15 | Inpatient (IN) | payer OTHER | END 2022-07-03 10:34 | disposition still patient (30) | LOC: PAVC 14:15 | PROVIDERS: ADMIT Internal Medicine Endocrinology, Diabetes & Metabolism; ATTEND Internal Medicine Endocrinology, Diabetes & Metabolism ==

== ENCOUNTER 2022-07-03 13:42 | Inpatient (IN) | payer OTHER | END 2022-08-03 12:10 | disposition still patient (30) | LOC: PAVC 13:42 | PROVIDERS: ADMIT Internal Medicine Endocrinology, Diabetes & Metabolism; ATTEND Internal Medicine Endocrinology, Diabetes & Metabolism ==

== ENCOUNTER 2022-08-03 12:24 | Inpatient (IN) | payer OTHER | END 2022-09-02 15:15 | disposition still patient (30) | LOC: PAVC 12:24 | PROVIDERS: ADMIT Internal Medicine Endocrinology, Diabetes & Metabolism; ATTEND Internal Medicine Endocrinology, Diabetes & Metabolism ==

== ENCOUNTER 2022-09-02 07:39 | Outpatient (CLI) | payer OTHER ==
[2022-09-02 08:16] LABS: PLATELET COUNT 230 K/uL (142-355)
[2022-09-02 08:19] LABS: POTASSIUM 4.5 mmol/L (3.6-5.2)
== END 2022-09-02 18:58 | disposition home or self-care (01) ==
LOC: LAB 07:39
PROVIDERS: ATTEND Internal Medicine Endocrinology, Diabetes & Metabolism
DX: I25.9 Chronic ischemic heart disease, unspecified (principal); N18.9 Chronic kidney disease, unspecified; E78.49 Other hyperlipidemia; I48.91 Unspecified atrial fibrillation; I12.9 Hypertensive chronic kidney disease with stage 1 through stage 4 chronic kidney disease, or unspecified chronic kidney disease
CPT/HCPCS: 80053; 80061; 82306; 83735; 85027

== ENCOUNTER 2022-09-02 15:38 | Inpatient (IN) | payer OTHER | END 2022-10-03 10:44 | disposition still patient (30) | LOC: PAVC 15:38 | PROVIDERS: ADMIT Internal Medicine Endocrinology, Diabetes & Metabolism; ATTEND Internal Medicine Endocrinology, Diabetes & Metabolism ==

== ENCOUNTER 2022-10-03 13:48 | Inpatient (IN) | payer OTHER | END 2022-11-03 09:24 | disposition still patient (30) | LOC: PAVC 13:48 | PROVIDERS: ADMIT Internal Medicine Endocrinology, Diabetes & Metabolism; ATTEND Internal Medicine Endocrinology, Diabetes & Metabolism ==

== ENCOUNTER 2022-11-03 10:57 | Outpatient (CLI) | payer OTHER | END 2022-11-03 19:09 | disposition home or self-care (01) | LOC: LAB 10:57 | PROVIDERS: ATTEND Family Medicine | DX: I48.91 Unspecified atrial fibrillation (principal); I50.9 Heart failure, unspecified | CPT/HCPCS: 80162 ==

== ENCOUNTER 2022-11-03 11:57 | Inpatient (IN) | payer OTHER | END 2022-12-01 15:09 | disposition still patient (30) | LOC: PAVC 11:57 | PROVIDERS: ADMIT Family Medicine; ATTEND Family Medicine ==

== ENCOUNTER 2022-12-01 15:41 | Inpatient (IN) | payer OTHER | END 2023-01-01 12:49 | disposition still patient (30) | LOC: PAVC 15:41 | PROVIDERS: ADMIT Family Medicine; ATTEND Family Medicine ==

== ENCOUNTER 2023-01-01 12:59 | Inpatient (IN) | payer OTHER | END 2023-01-31 16:40 | disposition still patient (30) | LOC: PAVC 12:59 | PROVIDERS: ADMIT Family Medicine; ATTEND Family Medicine ==

== ENCOUNTER 2023-01-31 17:08 | Inpatient (IN) | payer OTHER | END 2023-03-03 11:56 | disposition still patient (30) | LOC: PAVC 17:08 | PROVIDERS: ADMIT Family Medicine; ATTEND Family Medicine ==

== ENCOUNTER 2023-03-03 12:03 | Inpatient (IN) | payer OTHER | END 2023-04-02 17:40 | disposition still patient (30) | LOC: PAVC 12:03 | PROVIDERS: ADMIT Family Medicine; ATTEND Family Medicine ==

== ENCOUNTER 2023-03-07 07:39 | Emergency (ER) | payer OTHER ==
[~2023-03-07] VITALS: Ht 172.7 cm; Wt 158.8 kg
[2023-03-07 08:20] LABS: PLATELET COUNT 361 K/uL (142-355)
[2023-03-07 08:22] LABS: POTASSIUM 4.4 mmol/L (3.6-5.2)
[2023-03-07 13:15] VITALS: BP 110/74; TEMP 97.5
== END 2023-03-07 13:15 | disposition short-term general hospital (02) ==
LOC: ED 07:39
PROVIDERS: Family Medicine
DX: E87.1 Hypo-osmolality and hyponatremia (principal); A41.9 Sepsis, unspecified organism; F17.290 Nicotine dependence, other tobacco product, uncomplicated
CPT/HCPCS: 80053; 80162; 83605; 84484; 85027; 87040; 87077; 87185; 87205; 93005; 96365; 99285; J3370

== ENCOUNTER 2023-03-07 07:55 | Outpatient (CLI) | payer OTHER ==
[2023-03-07 08:12] LABS: PLATELET COUNT 363 K/uL (142-355)
[2023-03-07 08:30] LABS: POTASSIUM 5.4 mmol/L (3.6-5.2)
== END 2023-03-07 19:19 | disposition home or self-care (01) ==
LOC: LAB 07:55
PROVIDERS: ATTEND Family Medicine
DX: I25.9 Chronic ischemic heart disease, unspecified (principal); E78.49 Other hyperlipidemia; I10 Essential (primary) hypertension; I48.91 Unspecified atrial fibrillation; E55.9 Vitamin D deficiency, unspecified
CPT/HCPCS: 80053; 80061; 82306; 83735; 85027

== ENCOUNTER 2023-04-04 13:53 | Outpatient (CLI) | payer OTHER | END 2023-04-04 19:29 | disposition home or self-care (01) | LOC: LAB 13:53 | PROVIDERS: ATTEND Family Medicine | DX: I25.9 Chronic ischemic heart disease, unspecified (principal) | CPT/HCPCS: 81000 ==

== ENCOUNTER 2023-04-20 10:20 | Outpatient (CLI) | payer OTHER | END 2023-04-20 19:57 | disposition home or self-care (01) | LOC: US 10:20 | PROVIDERS: ATTEND Internal Medicine | DX: R22.42 Localized swelling, mass and lump, left lower limb (principal) ==

== ENCOUNTER 2023-04-25 10:00 | Emergency (ER) | payer OTHER ==
[~2023-04-25] VITALS: Ht 172.7 cm; Wt 163.3 kg
[2023-04-25 10:05] VITALS: BP 105/35; TEMP 98.5
[2023-04-25 11:25] LABS: PLATELET COUNT 294 K/uL (142-355)
[2023-04-25 11:35] LABS: POTASSIUM 4.4 mmol/L (3.6-5.2); SODIUM 134 mmol/L (136-145)
[2023-04-25 12:25] LABS: PARTIAL THROMBOPLASTIN TIME 36.8 SECONDS (23.9-36.7)
== END 2023-04-25 13:40 | disposition short-term general hospital (02) ==
LOC: ED 10:00
PROVIDERS: Family Medicine
DX: K92.2 Gastrointestinal hemorrhage, unspecified (principal); D64.9 Anemia, unspecified
CPT/HCPCS: 36415; 80053; 82150; 82272; 83690; 85027; 85610; 85730; 86850; 86900; 86901; 93005; 96361; 96374; 99284; J3490

== ENCOUNTER 2023-05-02 07:27 | Outpatient (CLI) | payer OTHER ==
[2023-05-02 08:09] LABS: PLATELET COUNT 300 K/uL (142-355)
[2023-05-02 08:25] LABS: POTASSIUM 4.2 mmol/L (3.6-5.2)
== END 2023-05-02 21:50 | disposition home or self-care (01) ==
LOC: LAB 07:27
PROVIDERS: ATTEND Internal Medicine
DX: I25.9 Chronic ischemic heart disease, unspecified (principal); I10 Essential (primary) hypertension; Z79.899 Other long term (current) drug therapy
CPT/HCPCS: 80053; 83735; 85027

== ENCOUNTER 2023-05-03 14:11 | Outpatient (CLI) | payer OTHER | END 2023-05-03 20:33 | disposition home or self-care (01) | LOC: LAB 14:11 | PROVIDERS: ATTEND Internal Medicine | DX: R48.9 Unspecified symbolic dysfunctions (principal); I25.9 Chronic ischemic heart disease, unspecified; I48.91 Unspecified atrial fibrillation; I50.9 Heart failure, unspecified | CPT/HCPCS: 36415; 80162; 84153 ==

== ENCOUNTER 2023-05-06 14:36 | Observation (INO) | payer OTHER ==
[~2023-05-06] VITALS: Ht 172.7 cm; Wt 177.4 kg
[2023-05-06 14:40] VITALS: BP 114/51; TEMP 97.1
[2023-05-06 15:42] LABS: PLATELET COUNT 339 K/uL (142-355)
[2023-05-06 15:50] LABS: POTASSIUM 4.6 mmol/L (3.6-5.2)
[2023-05-06 20:00] VITALS: BP 126/71; TEMP 97.6
[2023-05-07] VITALS: BP 123/60; TEMP 98
[2023-05-07 03:32] VITALS: BP 126/71; TEMP 97.6; Ht 172.7 cm; Wt 177.4 kg
[2023-05-07 04:00] VITALS: BP 129/58; TEMP 98.4
[2023-05-07 05:19] LABS: PLATELET COUNT 342 K/uL (142-355)
[2023-05-07 05:25] LABS: POTASSIUM 4.6 mmol/L (3.6-5.2)
[2023-05-07] MEDS ORDERED: DIFLUCAN 100MG TAB PO (10:23)
== END 2023-05-07 11:17 ==
LOC: ED 14:36 → MED/SURG 17:24
PROVIDERS: Family Medicine; ADMIT Internal Medicine Endocrinology, Diabetes & Metabolism; ATTEND Internal Medicine Endocrinology, Diabetes & Metabolism
DX: I50.9 Heart failure, unspecified (principal); R06.09 Other forms of dyspnea; E66.01 Morbid (severe) obesity due to excess calories; Z68.43 Body mass index [BMI] 50.0-59.9, adult; E78.49 Other hyperlipidemia; F41.8 Other specified anxiety disorders; G89.4 Chronic pain syndrome; K21.9 Gastro-esophageal reflux disease without esophagitis
CPT/HCPCS: 36415; 80048; 80053; 83880; 84484; 85027; 93005; 96374; 99221; 99284; G0378; J1940

== ENCOUNTER 2023-05-09 10:28 | Outpatient (CLI) | payer OTHER ==
[~2023-05-09 10:28] MED LIST changes: +DIFLUCAN 100MG TAB PO
== END 2023-05-09 19:11 | disposition home or self-care (01) ==
LOC: LAB 10:28
PROVIDERS: ATTEND Internal Medicine
DX: R71.0 Precipitous drop in hematocrit (principal)
CPT/HCPCS: 85014; 85018

== ENCOUNTER 2023-05-14 21:58 | Outpatient (CLI) | payer OTHER | END 2023-05-14 22:33 | disposition home or self-care (01) | LOC: RAD 21:58 | PROVIDERS: ATTEND Internal Medicine | DX: M25.562 Pain in left knee (principal) ==

== ENCOUNTER 2023-05-23 07:19 | Outpatient (CLI) | payer OTHER | END 2023-05-23 19:38 | disposition home or self-care (01) | LOC: LAB 07:19 | PROVIDERS: ATTEND Internal Medicine | DX: I25.9 Chronic ischemic heart disease, unspecified (principal); I10 Essential (primary) hypertension; Z79.899 Other long term (current) drug therapy | CPT/HCPCS: 80162 ==

== ENCOUNTER 2023-05-27 06:15 | Outpatient (CLI) | payer OTHER ==
[2023-05-27 10:14] LABS: PLATELET COUNT 352 K/uL (142-355)
== END 2023-05-27 18:54 | disposition home or self-care (01) ==
LOC: LAB 06:15
PROVIDERS: ATTEND Internal Medicine
DX: R79.89 Other specified abnormal findings of blood chemistry (principal)
CPT/HCPCS: 85027

== ENCOUNTER 2023-06-09 14:52 | Outpatient (CLI) | payer OTHER | END 2023-06-09 19:31 | disposition home or self-care (01) | LOC: LAB 14:52 | PROVIDERS: ATTEND Internal Medicine | DX: T21.05XA Burn of unspecified degree of buttock, initial encounter (principal); Y92.89 Other specified places as the place of occurrence of the external cause | CPT/HCPCS: 87070; 87077; 87186; 87205 ==

== ENCOUNTER 2023-06-12 11:22 | Observation (INO) | payer OTHER ==
[~2023-06-12] VITALS: Ht 172.7 cm; Wt 157.1 kg
[2023-06-12 12:34] LABS: PLATELET COUNT 271 K/uL (142-355)
[2023-06-12 12:52] LABS: POTASSIUM 4.1 mmol/L (3.6-5.2)
[2023-06-12 13:24] VITALS: BP 151/61; TEMP 97.4; Ht 172.7 cm; Wt 157.1 kg
[2023-06-12] MEDS ORDERED: BUSPIRONE10 MG PO (14:03)
[2023-06-12] MEDS ORDERED: B-121000 MC4 PO (14:04)
[2023-06-12] MEDS ORDERED: DULO60CA2 PO (14:06)
[2023-06-12] MEDS ORDERED: DIGO0.1230 PO (14:07)
[2023-06-12] MEDS ORDERED: METO25TA2 PO (14:09)
[2023-06-12] MEDS ORDERED: OZEMPIC2 MG/1.5 M SC (14:10)
[2023-06-12] MEDS ORDERED: ROPINIROLE2 MG PO (14:11)
[2023-06-12] MEDS ORDERED: ALPR0.5T24 PO (14:13)
[2023-06-12] MEDS ORDERED: EZETIMIBE10 MG PO (14:14)
[2023-06-12] MEDS ORDERED: ELIQUIS5 MG PO (14:18)
[2023-06-12] MEDS ORDERED: IRON325 MG PO (14:19)
[2023-06-12] MEDS ORDERED: NYST100016 TOP (14:24)
[2023-06-12] MEDS ORDERED: PANTOPRAZOLE 40MG TA PO (14:26)
[2023-06-12] MEDS ORDERED: TIZA4TAB5 PO (14:27)
[2023-06-12] MEDS ORDERED: HYDR10TA47A PO (14:28)
[2023-06-12] MEDS ORDERED: CEPH500C20 PO (14:29)
[2023-06-12] MEDS ORDERED: NYSTATIN100000 UNI PO (14:31)
[2023-06-12] MEDS ORDERED: DIPH25CA90 PO (14:34)
[2023-06-12] MEDS ORDERED: NITROSTAT0.4 MG SL (14:40)
[2023-06-12] MEDS ORDERED: PROAIR HFA108 MCG/AC PO (14:43)
[2023-06-12 20:00] VITALS: BP 129/67; TEMP 98.4
[2023-06-12 23:42] VITALS: BP 138/87; TEMP 97.9
[2023-06-13 03:58] VITALS: BP 139/83; TEMP 97.8
[2023-06-13 07:53] VITALS: BP 129/74; TEMP 98.2
[2023-06-13 12:00] VITALS: BP 135/69; TEMP 98.5
== END 2023-06-13 14:17 | disposition short-term general hospital (02) ==
LOC: MED/SURG 11:22
PROVIDERS: ADMIT Internal Medicine; ATTEND Internal Medicine
DX: T24.209A Burn of second degree of unspecified site of unspecified lower limb, except ankle and foot, initial encounter (principal); B96.89 Other specified bacterial agents as the cause of diseases classified elsewhere; I48.91 Unspecified atrial fibrillation; Z79.01 Long term (current) use of anticoagulants; K21.9 Gastro-esophageal reflux disease without esophagitis; E11.9 Type 2 diabetes mellitus without complications; F41.8 Other specified anxiety disorders; D50.8 Other iron deficiency anemias; B37.0 Candidal stomatitis; E78.49 Other hyperlipidemia; I50.9 Heart failure, unspecified; E83.42 Hypomagnesemia; X10.0XXA Contact with hot drinks, initial encounter; Y92.89 Other specified places as the place of occurrence of the external cause
CPT/HCPCS: 36415; 80053; 85027; 96365; 96367; 99221; G0378; G0379; J0692

== ENCOUNTER 2023-07-06 13:49 | Outpatient (CLI) | payer OTHER ==
[~2023-07-06 13:49] MED LIST changes: +ALPR0.5T24 PO; +B-121000 MC4 PO; +BUSPIRONE10 MG PO; +CALCIUM 600 WIT1 TAB PO; -CALCIUM CARBON600 M2 PO; +CEPH500C20 PO; +DIGO0.1230 PO; +DIPH25CA90 PO; +DULO60CA2 PO; +EZETIMIBE10 MG PO; +HYDR10TA47A PO; +METO25TA2 PO; -METOPROLOL25 M1 PO; +NITROSTAT0.4 MG SL; +NYAMYC100000 UNI TOP; +NYSTATIN100000 UNI PO; +OZEMPIC2 MG/1.5 M SC; +PANTOPRAZOLE 40MG TA PO; +PROAIR HFA108 MCG/AC PO; +ROPINIROLE2 MG PO; +TIZA4TAB5 PO; -TYLENOL325 M1 PO; +TYLENOL325 MG PO; +[UNRECOGNIZED DRUG - OTHER] IM
[2023-07-06 14:30] LABS: PLATELET COUNT 259 K/uL (142-355)
[2023-07-07] MEDS ORDERED: NYAMYC100000 UNI TOP (14:16)
[2023-07-07] MEDS ORDERED: OXYC5TAB24 PO (14:18)
[2023-07-07] MEDS ORDERED: ROPINIROLE PO (14:25)
[2023-07-07] MEDS ORDERED: SALINE NAS (14:26)
[2023-07-07] MEDS ORDERED: TRIAMCINOLON0.025 % TOP (14:27)
[2023-07-07] MEDS ORDERED: TYLENOL325 MG PO (14:28)
== END 2023-07-06 19:28 | disposition home or self-care (01) ==
LOC: LAB 13:49
PROVIDERS: ATTEND Internal Medicine
DX: R04.0 Epistaxis (principal)
CPT/HCPCS: 85027

== ENCOUNTER 2023-07-07 07:32 | Observation (INO) | payer OTHER ==
[~2023-07-07] VITALS: Ht 172.7 cm; Wt 152.6 kg
[2023-07-07 07:32] VITALS: BP 103/48; TEMP 97.8
[2023-07-07 08:21] LABS: POTASSIUM 4.7 mmol/L (3.6-5.2)
[2023-07-07 08:24] LABS: PLATELET COUNT 292 K/uL (142-355)
[2023-07-07 12:00] VITALS: BP 103/69; TEMP 97.6
[2023-07-07 13:13] VITALS: BP 103/69; TEMP 97.6; Ht 172.7 cm; Wt 152.6 kg
[2023-07-07] MEDS ORDERED: NYAMYC100000 UNI TOP (14:16)
[2023-07-07] MEDS ORDERED: OXYC5TAB24 PO (14:18)
[2023-07-07] MEDS ORDERED: ROPINIROLE PO (14:25)
[2023-07-07] MEDS ORDERED: SALINE NAS (14:26)
[2023-07-07] MEDS ORDERED: TRIAMCINOLON0.025 % TOP (14:27)
[2023-07-07] MEDS ORDERED: TYLENOL325 MG PO (14:28)
[2023-07-07 16:00] VITALS: BP 100/79; TEMP 98.2
[2023-07-07 20:00] VITALS: BP 131/51; TEMP 98.7
[2023-07-08] VITALS: BP 124/55; TEMP 98.7
[2023-07-08 04:00] VITALS: BP 101/40; TEMP 98.1
[2023-07-08 06:09] LABS: PLATELET COUNT 225 K/uL (142-355)
[2023-07-08 06:34] LABS: POTASSIUM 3.9 mmol/L (3.6-5.2)
[2023-07-08 08:14] VITALS: BP 127/51; TEMP 98.1
[2023-07-08 12:05] VITALS: BP 128/63; TEMP 98
== END 2023-07-08 14:04 ==
LOC: ED 07:32 → MED/SURG 08:48
PROVIDERS: ADMIT Family Medicine; ATTEND Internal Medicine
DX: K92.2 Gastrointestinal hemorrhage, unspecified (principal); R04.0 Epistaxis; D62 Acute posthemorrhagic anemia; Z79.01 Long term (current) use of anticoagulants; I48.91 Unspecified atrial fibrillation; K21.9 Gastro-esophageal reflux disease without esophagitis; E11.9 Type 2 diabetes mellitus without complications; F41.8 Other specified anxiety disorders; D50.8 Other iron deficiency anemias; B37.0 Candidal stomatitis; E78.49 Other hyperlipidemia; G62.89 Other specified polyneuropathies; G25.81 Restless legs syndrome; G89.4 Chronic pain syndrome
CPT/HCPCS: 36415; 80053; 81002; 82272; 83605; 85014; 85018; 85027; 85610; 99221; 99283; G0378

== ENCOUNTER 2023-07-14 08:00 | Outpatient (CLI) | payer OTHER ==
[~2023-07-14 08:00] MED LIST changes: +OXYC5TAB24 PO; +ROPINIROLE PO; +SALINE NAS; +TRIAMCINOLON0.025 % TOP
[2023-07-14 08:38] LABS: PLATELET COUNT 268 K/uL (142-355)
== END 2023-07-14 19:42 | disposition home or self-care (01) ==
LOC: LAB 08:00
PROVIDERS: ATTEND Internal Medicine
DX: D64.89 Other specified anemias (principal)
CPT/HCPCS: 85027

== ENCOUNTER 2023-07-21 14:41 | Outpatient (CLI) | payer OTHER | END 2023-07-21 19:07 | disposition home or self-care (01) | LOC: LAB 14:41 | PROVIDERS: ATTEND Internal Medicine | DX: R31.9 Hematuria, unspecified (principal) | CPT/HCPCS: 81000 ==

== ENCOUNTER 2023-11-22 07:42 | Outpatient (CLI) | payer OTHER ==
[~2023-11-22 07:42] MED LIST changes: +BUDE1AER5 INH; +CEFDINIR300 MG PO; +HUMALOG100 UNIT/M IM; +LIPITOR40 MG PO; +LYRICA100 MG PO; +NOVOLOG100 UNIT/M SC
== END 2023-11-22 19:19 | disposition home or self-care (01) ==
LOC: LAB 07:42
PROVIDERS: ATTEND Internal Medicine
DX: Z51.81 Encounter for therapeutic drug level monitoring (principal); Z79.899 Other long term (current) drug therapy
CPT/HCPCS: 80162